=== PATIENT | female | born 1940 | race Caucasian/White ===

== ENCOUNTER → 2020-11-23 15:02 | Outpatient (CLI) | payer MEDICARE, OTHER, SELFPAY ==
[2015-09-24 17:00] VITALS: BMI 32.5
--- NOTE | 2020-11-23 15:09 | CT_ITS ---
STUDY: CT SCAN LOWER EXTREMITY LEFT REASON FOR EXAM: Female, 80 years old. Left knee osteoarthritis, makoplasty templating. RADIATION DOSAGE (If Supplied By Facility): CTDIvol = ( 19.46 ) mGy, DLP = ( 1163.74 ) mGycm. Individualized dose optimization techniques were used for this CT.? TECHNIQUE: Multiple axial tomographic images of the left hip joint, knee joint and ankle joint were obtained. Coronal and sagittal reconstruction was obtained as well. COMPARISON: None. FINDINGS: Moderate degree of joint space narrowing of the hip joint with marginal osteophytes along the femoral neck as well as the acetabular rim. Marked degree of joint space narrowing with degenerative spur formation along the medial compartment of the knee joint. Mild joint space narrowing involving the lateral compartment of the knee joint. Mild degree of joint space narrowing of the patellofemoral joint with anterior spur formation of the distal femoral condyle. Imaging of the ankle joint was performed. No significant abnormality is seen. CT/Extremity Lower without Contra IMPRESSION: Marked degree of joint space narrowing in the spur formation of the medial compartment of the knee joint as well as a mild degree of degenerative changes of the patellofemoral joint as well as the lateral compartment of the knee joint. Electronically Signed: Roberto Watson MD at 15:44 EST , Service support ,
== END ==
PROVIDERS: PCP Family Medicine; Referring Provider Orthopaedic Surgery; Visit Provider Orthopaedic Surgery
DX: M17.12 Unilateral primary osteoarthritis, left knee (principal)
CPT/HCPCS: 73700

== ENCOUNTER → 2020-11-30 17:23 | Outpatient (CLI) | payer MEDICARE, OTHER, SELFPAY ==
[2015-09-24 17:00] VITALS: BMI 32.5
== END ==
PROVIDERS: PCP Family Medicine; Referring Provider Orthopaedic Surgery; Visit Provider Orthopaedic Surgery
DX: Z11.59 Encounter for screening for other viral diseases (principal)
CPT/HCPCS: 87635; C9803; U0005; U0003

== ENCOUNTER → 2020-12-06 13:20 | Outpatient (CLI) | payer MEDICARE, OTHER, SELFPAY ==
[2015-09-24 17:00] VITALS: BMI 32.5
--- NOTE | 2020-12-06 13:37 | EKG12_ITS ---
Test Reason : PRE OP Blood Pressure : / mmHG Vent. Rate : 079 BPM Atrial Rate : 079 BPM P-R Int : 202 ms QRS Dur : 110 ms QT Int : 396 ms P-R-T Axes : 075 -33 074 degrees QTc Int : 454 ms Sinus rhythm with occasional Premature ventricular complexes Left axis deviation Septal infarct ,age undetermined Abnormal ECG Confirmed by CHANTEL BOWERS, ALONSO ([id number]), field map editor JOSE ELIAS DICKEY ([id number]) on 12/07/2020 6:53:25 AM Referred By: Jed Zheng Confirmed By:ALONSO GOLDEN MD
[2020-12-06 14:04] LABS: Hemoglobin 12.8 g/dL (12.0-15.0); Mean Corp Hgb Conc 32.8 g/dL (32-36); Mean Corpuscular Hgb 30.6 pg (27.0-32.0); Mean Corpuscular Volume 93.3 fL (81-99); Mean Platelet Vol. 11.8 fl (6.2-12.0); Platelet Count 215 K/mm3 (150-450); RBC Distribution Width CV 13.7 % (11.6-14.6); RBC Distribution Width SD 46.7 fl (35.1-43.9); Red Blood Count 4.18 M/mm3 (4.2-5.4); White Blood Count 8.3 K/mm3 (4.4-11.0)
[2020-12-06 14:30] LABS: Anion Gap 7 (5-15); BUN 21 mg/dL (7-18); Calcium,Total 8.9 mg/dL (8.5-10.1); Chloride 106 mmol/L (98-107); Creatinine, Serum 0.72 mg/dL (0.55-1.02); EST Glomerular Filtration Rate 82 mL/min (>60); Est Glom Filt Rate - Afr Amer 100 mL/min (>60); Glucose 122 mg/dL (74-106); Potassium 3.9 mmol/L (3.5-5.1); Sodium Level 140 mmol/L (136-145)
== END ==
PROVIDERS: Orthopaedic Surgery; PCP Family Medicine; Referring Provider Physician Assistant; Visit Provider Physician Assistant
DX: Z01.810 Encounter for preprocedural cardiovascular examination (principal); Z01.818 Encounter for other preprocedural examination; E11.9 Type 2 diabetes mellitus without complications
CPT/HCPCS: 36415; 80048; 85027; 93005

== ENCOUNTER → 2020-12-08 15:33 | Outpatient (CLI) | payer MEDICARE, OTHER, SELFPAY ==
--- NOTE | 2020-12-08 08:56 | KNEE_PTH ---
PATIENT: NOEMY GOLD LOC: [facility] U#:[id number] AGE/SX: 84/F ROOM: RE12/08/[address]: Dr. Donnie Sanchez DO : 1940 BED: DIS: SPEC #: [id number] RECD: 12/08/20 15:02 STATUS: NITIN DANIELLE #: [id number] ZENON: 12/08/20 08:[address]: Donnie Sanchez DEPT: SURGICAL PATHOLOGY RECD BY: Maria Dolores Coffman ENTERED: 12/09/20 08:13 SP TYPE: TOTAL KNEE OTHR DR: Dr. Evens Beach III, MD [facility] Tissues: Knee, NOS Procedures: Decalcification bone/plaque Surgery Specimen Level IV HEADER OPERATION: Robotic assisted left total knee arthroplasty PRE-OP DIAGNOSIS: Primarily osteoarthritis, varus deformity, left knee TISSUE SUBMITTED: Bone left knee MICROSCOPIC DIAGNOSIS Bone, left knee, total knee replacement/resection: Pieces of bone with degenerative osteoarthritic changes. Fibroadipose tissue, fibroconnective tissue and reactive synovial tissue. Focal changes consistent with pseudogout. PEREZ:vaughn 12/15/2020 MICROSCOPIC DESCRIPTION Slides are reviewed. GROSS DESCRIPTION Received is one container designated bone and soft tissue left knee. The specimen consists of multiple fragments of franz-yellow bone measuring in aggregate 10 x 8 x 3 cm. The soft tissue predominantly consists of fibrocartilaginous tissue measuring in aggregate 5 x 2 x 0.7 cm. A number of bony fragments contain articular surfaces consistent with tibial plateau and femoral condyle and displaying prominent osteophyte formation, eburnation, and bone erosion. Testing Consultant sections are submitted in two cassettes as follows: 1 - soft tissue, 2 - bone after decalcification. / PEREZ:vaughn 12/09/20 TC:5 [facility]: [id number], [id number]
== END ==
PROVIDERS: PCP Family Medicine; Referring Provider Orthopaedic Surgery; Visit Provider Orthopaedic Surgery
DX: M17.12 Unilateral primary osteoarthritis, left knee (principal); M21.162 Varus deformity, not elsewhere classified, left knee
CPT/HCPCS: 88305; 88311

== ENCOUNTER 2025-06-15 10:49 | Emergency (ER) | payer MEDICARE, SELFPAY ==
[2025-06-15 10:50] VITALS: BP 157/89; PULSE 74; RESP 16; TEMP 36.7; O2SAT 96; BMI 26.5
--- NOTE | 2025-06-15 11:37 | EKG12_ITS ---
Test Reason : ANXIETY Blood Pressure : */* mmHG Vent. 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
[2025-06-15 12:00] LABS: Hematocrit 43.2 % (37-47); Hemoglobin 13.9 g/dL (12.0-15.0); Immature Granulocytes Count 0.020 X10^3/uL (0.0-0.0); Mean Corp Hgb Conc 32.2 g/dL (32-36); Mean Corpuscular Volume 94.1 fL (81-99); Mean Platelet Vol. 10.5 fl (6.2-12.0); NRBC Flagged by Analyzer 0 % (0-5); Platelet Count 221 K/mm3 (150-450); RBC Distribution Width CV 13.1 % (11.6-14.6); RBC Distribution Width SD 45.0 fl (35.1-43.9); Red Blood Count 4.59 M/mm3 (4.2-5.4); White Blood Count 7.8 K/mm3 (4.4-11.0)
--- NOTE | 2025-06-15 12:30 | EX.ED.VIS.PS ---
HPI HPI - Psych History of Present Illness Chief Complaint: Anxiety Narrative Narrative: Patient is an 84-year-old female presenting to the emergency department for anxiety. Patient has no prior history of anxiety or depression. Patient is a very poor historian. States that she lives at home alone and reports that yesterday she began feeling very nervous for no reason. She denies any fever, chest pain, shortness of breath, abdominal pain, nausea or vomiting. Denies any suicidal thoughts. She asked that I talk to her sister for further information. Spoke to sister who states that she is concerned that she is not taking care of herself at home. States that she feels like she is not completing her ADLs. When asked about this she states that she is only staying in the house and did not get dressed this morning. PFSH PFS Medical History GERD (gastroesophageal reflux disease) FHx: cholecystectomy Medical History no medical history Home Medications ?Medication ?Instructions ?Recorded ?Last Taken ?Type multivitamin (Daily Multiple 1 ea PO DAILY 09/24/15 Unknown History tablet) oxybutynin chloride 5 mg tablet 5 mg PO DAILY 09/24/15 Unknown History omeprazole 20 mg capsule,delayed 20 mg PO DAILY 06/15/25 Unknown History release Allergy/AdvReac Type Severity Reaction Status Date / Time No Known Allergies Allergy Verified 06/15/25 10:50 Family History no significant family his Surgical History History of knee replacement Surgical History no surgical history Social History Smoking Status: Former smoker ROS ROS ED ROS Narrative see HPI EXAM Physical Exam Narrative Exam Narrative: Vital signs: Reviewed General: Alert and orientedx3. No acute distress HEENT: Head is normocephalic and atraumatic, sinuses nontender, pupils equal round and reactive. Nares are patent. Oropharynx and throat exams normal. Neck: Supple without lymphadenopathy nontender Cardiovascular: Regular rate and rhythm, no murmurs. No rubs or gallops. Normal S1 and S2 Respiratory: Clear to auscultation bilaterally. No wheezes, rales, rhonchi Abdominal: Soft and nontender. Normal bowel sounds. No guarding or rebound. Nonsurgical abdomen Extremities: No tenderness. No bruising. Normal range of motion. Normal sensation. Skin: No rash or redness. Neurological: Cranial nerves II through XII are grossly intact. Normal strength and sensation. Normal cerebellar function The rest of the physical exam is unremarkable Const Vital Signs: 06/15/25 10:50 06/15/25 12:50 06/15/25 14:00 Temperature 98.1 F Temperature Source Oral Pulse Rate 74 57 L Respiratory Rate 16 16 Blood Pressure 157/89 H 172/76 H 156/94 H Blood Pressure Mean 111 108 114 Pulse Ox 96 98 97 Oxygen Delivery Method Room Air Room Air Room Air 06/15/25 14:56 Temperature 98.1 F Temperature Source Pulse Rate 57 L Respiratory Rate 16 Blood Pressure 156/94 H Blood Pressure Mean 114 Pulse Ox 97 Oxygen Delivery Method Psych Appearance: well kempt Attitude: calm, No uncooperative, No agitated and No aggressive Activity / Motor Behavior: appropriate eye contact and fidgetting Speech: normal speech Mood & Affect: apathetic and sad Thought Content: No suicidality, No homicidality, No delusion(s) and No hallucination(s) MDM MDM MDM Narrative Medical decision making narrative: Patient is an 84-year-old female presenting to the emergency department for anxiety. Patient was seen and examined. Vitals are stable. Patient resting in chair comfortably no acute distress. Given the patient has no history of any psychiatric disorder, labs were ordered as well as an EKG. EKG shows sinus bradycardia with no ischemic changes. No ST elevation or depression. CBC with no leukocytosis and normal hemoglobin. BMP with no significant abnormalities. Magnesium within normal limits. Troponin within normal limits. TSH within normal limits. Urinalysis with no evidence of UTI. I did consult social work to evaluate patient given sister's concerns. Based on my evaluation, I think the patient can be managed outpatient. Obvious she is still caring for herself, and is well-dressed and appears to be completing her ADLs at home. She denies any significant depression, thoughts of harming herself or anyone else. Any hallucinations or delusions are denied as well. Patient's niece did arrive and we did discuss home-going instructions with her and the patient as well. Patient told social work that she is nervous driving as she does not know if she will be able to find her way home. I do have concern for a possible developing dementia. I voiced these concerns Meagan and I recommended that someone check on her frequently and to follow-up with her primary care doctor soon as possible to discuss possible medications for her reports of anxiety and depression. Does not know any medical cause of her symptoms yet. Patient discharged from the Emergency Department. I do not feel that the patient's evaluation reveals any acute reason for admission at this time. I instructed them to either follow-up with their primary care physician or promptly return to the Emergency Department for reevaluation should symptoms worsen or new symptoms develop. I explained what symptoms would indicate the need to return to the emergency department. Shared decision making was used. The patient voiced understanding of the treatment plan and is agreeable with it. Clinical impression: Anxiety History & Record Review Discussion w/independent historian: Family Lab Data Attestation: I reviewed the patient's lab results. Labs: Laboratory Results - last 24 hr 06/15/25 06/15/25 11:55 12:39 WBC 7.8 RBC 4.59 Hgb 13.9 Hct 43.2 MCV 94.1 MCH 30.3 MCHC 32.2 RDW Std Deviation 45.0 H RDW Coeff of [place] 13.1 Plt Count 221 MPV 10.5 Immature Gran % (Auto) 0.300 Neut % (Auto) 70.6 H Lymph % (Auto) 20.2 [place] % (Auto) 7.7 Eos % (Auto) 0.6 Baso % (Auto) 0.6 Absolute Neuts (auto) 5.5 Absolute Lymphs (auto) 1.58 Nucleated RBC % 0 Sodium 141 Potassium 4.1 Chloride 103 Carbon Dioxide 26.7 Anion Gap 11 BUN 18 Creatinine 0.60 L Estim Creat Clear Calc 48.47 L Est GFR (MDRD) Non-Af 89 BUN/Creatinine Ratio 30.8 H Glucose 97 Calcium 9.8 Magnesium 1.9 Troponin T High Sens 10 TSH 1.160 Urine Color Straw Urine Clarity Clear Urine pH 7.0 Ur Specific Comfort 1.010 Urine Protein 15 H Urine Glucose (UA) Normal Urine Ketones Negative Urine Occult Blood 10 H Urine Nitrite Negative Urine Bilirubin Negative Urine Urobilinogen Normal Ur Leukocyte Esterase 100 H Urine RBC 0 SEEN Urine WBC 0-5 SEEN Ur Squamous Epith Cells 0-5 SEEN Urine Bacteria 0 SEEN Urine Mucus 0 SEEN Discharge Plan Triage Chief Complaint: Anxiety ED Provider: Charline Perales Dx/Rx/DC Orders Instructions: ED Anxiety Reaction, ED Depression Prescriptions: No Action multivitamin [Daily Multiple] 1 EACH tablet 1 ea PO DAILY oxybutynin chloride 5 MG tablet 5 mg PO DAILY omeprazole 20 mg capsule,delayed release(DR/EC) 20 mg PO DAILY Primary Care Provider: Care Physician,No Primary Referrals: Your primary care doctor [Other] - 2 Days Care Physician,No Primary [Primary Care Provider] - Activity Restrictions/Additional Instructions: Please follow-up with your primary care doctor in 1 to 2 days. Your evaluation in the Emergency Department did not reveal any acute reason for admission. However, I want to emphasize that you may be early in the course of a disease process or illness even if it is not present. For this reason you should follow-up within 24 hours for reevaluation with either your primary care physician or if necessary back here in the Emergency Department. You should return to the Emergency Department immediately if your symptoms worsen or new symptoms develop. Print Language: R[place] Disposition Disposition: Home, Self Care Discharge Date/Time: 06/15/25 14:57
[2025-06-15 12:41] LABS: Troponin T High Sensitivity 10 ng/L (<=14)
[2025-06-15 12:43] LABS: Mucous, Urine 0 SEEN /hpf (<or=2+); Red Blood Cells-Urine 0 SEEN /hpf (0-5)
[2025-06-15 12:50] VITALS: BP 172/76; PULSE 57; RESP 16; O2SAT 98
[2025-06-15 12:50] LABS: Anion Gap 11 (5-15); BUN 18 mg/dL (4-19); BUN/Creat Ratio 30.8 RATIO (10-20); Calcium,Total 9.8 mg/dL (7.6-11.0); Carbon Dioxide 26.7 mmol/L (21.0-32.0); Chloride 103 mmol/L (98-108); Estimated Creatinine Clearance 48.47 ml/min (50-250); Glucose 97 mg/dL (70-99); Magnesium 1.9 mg/dL (1.5-2.2); Potassium 4.1 mmol/L (3.3-5.1)
[2025-06-15 13:03] LABS: Color, Urine Straw (Yellow); Glucose, Dipstick Normal (Normal); Ketone-Dipstick Negative (Negative); Leukocyte Esterase-Dipstick 100 /ul (Negative); Nitrite-Dipstick Negative (Negative); Occult Blood-Urine 10 /ul (Negative); Protein-Dipstick 15 mg/dl (Negative); Specific Gravity, Urine 1.010 (1.002-1.030); Urine Bilirubin Dipstick Negative (Negative)
[2025-06-15 13:23] LABS: Squamous Epithelial Cells - UA 0-5 SEEN /hpf (5-10)
[2025-06-15 14:00] VITALS: BP 156/94; O2SAT 97
--- NOTE | 2025-06-15 14:30 | CM.ED ---
Social work Reason for referral: anxiety/resources Referral source: Dr. Diaz Perales asked SW to talk with patient about patient's family concerns regarding patient's completion of ADLs and general confusion. Dr. Perales also stated patient may possibly be depressed after leaving patient's sister's home and moving into patient's own apartment. Per Dr. Perales's conversation with patient's sister, patient's sister reportedly had a recent stroke and patient's niece Keily arrived from [place] to help care for patient's sister. This patient is known to SW due to attending the same judaism in the community. SW entered patient's room, introducing self and role at [facility]. Patient stated SW looked familiar and smiled when SW shared how patient and SW would know each other. Patient engaged SW in conversation regarding judaism and the blending plant operator. Patient was observed looking tired and appeared to be confused as to why patient was present at the hospital. Patient stated patient's niece, Violetta, had just walked out of the room. Patient stated Violetta was tall and wearing a box sweater. Patient's niece, Keily, entered room. SW and Keily introduced selves and roles in patient's life. Keily expressed concerns from patient's sister about patient's mental health since patient moved in alone. Keily expressed patient had not been to judaism lately, had not been completing ADLs, and was not remembering where certain things were located. Keily stated belief that patient could be experiencing some depression after moving out. Prior to Keily entering, patient stated living with patient's sister for about 6 months; Keily confirmed that it had been 5 months. While Keily and ROBERT spoke, patient was observed sitting quietly and answering questions when needed. Keily stated living in [place], but stated ability to stay in [place] for as long as necessary. Patient stated patient's son lives in [place]; Keily stated already being in contact with patient's son who stated ability to come to [place] as necessary as well. Due to concerns expressed, the following resources were provided: counseling, anxiety and depression coping strategies, grounding exercises, home delivered meals, adult day centers, private duty home health aides, transportation resources, and [facility]. Patient was encouraged to follow up with patient's PCP after this ED visit. Keily stated patient should consider having PCP prescribe a low dose of depression medication. Patient nodded in agreement. In talking with Dr. Perales, SW stated observations and facts of SW conversation. Due to family support being present, as well as patient and Keily accepting resources provided, it was decided that patient could discharge home safely. Keily and patient were both encouraged to return if it was still felt patient was confused or unable to manage ADLs/IADLs on own. Keily and patient expressed understanding. Dona Bearden, CLASSROOM INSTRUCTIONAL AIDE, CONFIGURATION MANAGEMENT MANAGER
[2025-06-15 14:56] VITALS: BP 156/94; PULSE 57; RESP 16; TEMP 36.7; O2SAT 97
== END 2025-06-15 14:57 | disposition home or self-care (01) ==
PROVIDERS: Emergency Provider Student in an Organized Health Care Education/Training Program; PCP Family Medicine; Visit Provider Student in an Organized Health Care Education/Training Program
DX: F41.9 Anxiety disorder, unspecified (principal); Z87.891 Personal history of nicotine dependence
CPT/HCPCS: 80048; 81001; 83735; 84443; 84484; 85025; 93005; 99284; A4216